=== PATIENT | female | born 1970 | race Caucasian/White ===

== ENCOUNTER 2021-12-21 19:01 | Emergency (ER) | payer OTHER, SELFPAY ==
[2021-12-21 20:10] VITALS: BP 145/92; PULSE 81; RESP 19; TEMP 36.7; O2SAT 98; BMI 26.2
[2021-12-21 20:27] LABS: Adenovirus,PCR Not Detected (NotDetected); Bordetella Pertussis Not Detected (NotDetected); Chlamydophila Pneumoniae, PCR Not Detected (NotDetected); Coronavirus 19, PCR Not Detected (NotDetected); Coronavirus 229E Not Detected (NotDetected); Coronavirus NL63 Not Detected (NotDetected); Coronavirus OC43 Not Detected (NotDetected); Coronovirus HKU1,PCR Not Detected (NotDetected); Human Metapneumovirus Not Detected (NotDetected); Influenza A, PCR Not Detected (NotDetected); Influenza AH1, 2009 Not Detected (NotDetected); Influenza AH1, PCR Not Detected (NotDetected); Influenza AH3,PCR Not Detected (NotDetected); Influenza B, PCR Not Detected (NotDetected); Mycoplasma Pneumoniae, PCR Not Detected (NotDetected); Parainfluenza 1, PCR Not Detected (NotDetected); Parainfluenza 2, PCR Not Detected (NotDetected); Parainfluenza 3, PCR Not Detected (NotDetected); Parainfluenza 4, PCR Not Detected (NotDetected); Respiratory Syncytial Virus Not Detected (NotDetected); Rhinovirus/Enterovirus Not Detected (NotDetected)
[2021-12-21 20:32] VITALS: BP 145/92; PULSE 81; RESP 19; TEMP 36.7; O2SAT 98
--- NOTE | 2021-12-21 20:32 | EXP.UTC ---
Discharge Plan Disposition Patient Disposition: Home, Self-Care Condition: Good Prescriptions Prescriptions: New azithromycin [Zithromax Z-Martinez] 250 mg tablet See Rx Instructions .ROUTE .COMPLEX Qty: 6 0RF Rx Instructions: For 250 mg dose pack: take 500 mg today (day 1), then 250 mg for 4 days (days 2-5) Referrals Follow up/Referrals: Beau Cormier MD [Primary Care Provider] - See instructions Activity Restrictions/Add. Instructions Additional Instructions/Restrictions: Make sure to notify whom ever monitors your blood work to let them know you on Azithromcyin your warfarin dose may need adjusted and watched if you take antibiotics Start antibiotic Be sure to complete entire prescription even if feeling better Monitor temp. Tylenol every 4 hours as needed and / or ibuprofen every 6 hours as needed ( As long as your primary care physician has told you that it ok to take both. For fever/aches/pains ER if no less than 101 despite Tylenol or Motrin Humidifier/vaporizer or hot steamy shower Inhaler every 4-6 hours as needed like we discussed. If unsure how to use it, ask pharmacist to demonstrate how. Should help open airways and improve cough, wheezing, and shortness of breath Over the counter Mucinex during the day for your cough during the day and cough suppressant only at night. Be sure to drink lots of water. *Tessalon Perles as prescribed for your cough, will not cause drowsiness but use at bedtime to help stop cough so that you may get some rest. Follow up IMMEDIATELY for new or worsening of symptoms OR no noticeable improvement over the next 48-72 hours. 911 immediately for any life threatening symptoms such as chest pain or difficulty breathing You were tested for today for COVID19 your test result should be back in the next 24-48 hours, you may may check your results on the [facility] My Health Portal Make sure to take your Vitamins Vit. C Vit D and Zinc if you can take them Clinical Impressions Clinical Impression: Sinusitis, Bronchitis Stand Alone Forms Stand Alone Forms: Work/School Release Discharge ED Provider: Aby Love [facility] [place] HPI General Stated complaint: cough, sore throat, congestion, covid test Mode of Arrival: Ambulatory Source of Information: Patient Limitations: No Limitations Time Seen by Provider: 12/21/21 20:32 Description of Symptoms (Recalled from Triage Doc. by RN): PATIENT C/O SOA, DIARRHEA, COUGH, AND SORE THROAT X 4 DAYS HEENT Symptoms (Recalled from RN notes): Yes Resp Symptoms (Recalled from RN notes): Yes Skin Symptoms (Recalled from RN notes): No MS Symptoms (Recalled from RN notes): No Functional Status (Recalled from RN notes): WNL History of Present Illness Provider Complaint: Patient state that she has been sick for about 4 days States that she has been having sinus congestion and pressure, cough, diarrhea and feeling little SOA at times after coughing episode states that she seen someone today and they give her a Rocephin shot and cough pills but this evening she was still feeling bad so she came in to get checked out Related Data Previous Rx's Medication Instructions Recorded azithromycin 250 mg tablet See Rx Instructions PO .COMPLEX #6 12/21/21 (Zithromax Z-Martinez) tabs Allergies Allergy/AdvReac Type Severity Reaction Status Date / Time acetaminophen Allergy Verified 12/21/21 20:24 [From Darvocet-N] propoxyphene Allergy Verified 12/21/21 20:24 [From Darvocet-N] Worker's Comp Is this a Worker's Comp case?: No PFSH PFSH Social History Smoking Status: Unknown if ever smoked alcohol intake: never current occupational status: other Travel in the last 8 weeks: None ROS Obtained: Yes All systems reviewed & no additional complaints except as documented and Yes Systems reviewed as appropriate & no additional complaints except as documented Constitutional Constitutional: Reports system
[2021-12-21 20:40] LABS: UTC Strep Screen (Rapid) Negative (Negative)
== END 2021-12-21 21:13 | disposition home or self-care (01) ==
PROVIDERS: Emergency Provider Nurse Practitioner; PCP Family Medicine
DX: J01.90 Acute sinusitis, unspecified (principal); J20.9 Acute bronchitis, unspecified; Z20.822 Contact with and (suspected) exposure to COVID-19
CPT/HCPCS: 87581; 87632; 87798; 87880; 96372; 99212; C9803; G0463; U0003; U0005

== ENCOUNTER 2024-02-12 11:13 | Emergency (ER) | payer OTHER, SELFPAY ==
[2024-02-12] VITALS (11 sets, daily range): BP systolic 123–164; BP diastolic 77–96; PULSE 84–105; RESP 16; TEMP 36.4–36.7; O2SAT 94–98; BMI 34.4
--- NOTE | 2024-02-12 11:39 | HMH.EDGENADL ---
Discharge Plan Disposition Patient Disposition: Home, Self-Care Prescriptions Prescriptions: New ondansetron 4 mg tablet,disintegrating 4 mg PO Q6H PRN (Reason: nausea and vomiting) 5 Days Qty: 20 0RF No Action azithromycin [Zithromax Z-Martinez] 250 mg tablet See Rx Instructions .ROUTE .COMPLEX Qty: 6 0RF Rx Instructions: For 250 mg dose pack: take 500 mg today (day 1), then 250 mg for 4 days (days 2-5) Referrals Follow up/Referrals: Kimo Gonzalez II, MD [Staff Physician] - See instructions Beau Cormier MD [Primary Care Provider] - See instructions Activity Restrictions/Add. Instructions Additional Instructions/Restrictions: The bulge that you are feeling on your midline of your abdomen is consistent with diastases recti which is as discussed an abnormal distance between the muscular bodies of your abdominal wall but not a true hernia. I would recommend that you lose weight and discuss this further with your general surgeon if you continue to have symptoms. Your abdominal pain is most likely secondary to the inflammatory changes we see on your colon consistent with colitis which may be infectious versus inflammatory. Please follow-up with her commercial lending vice president for further evaluation and management of this. Additionally your INR was subtherapeutic and continue to take your prescribed medications and follow-up primary care doctor regarding that Clinical Impressions Clinical Impression: Abdominal pain, Subtherapeutic international normalized ratio (INR), Colitis, Diastasis recti Instructions Patient Instructions: DI for Acute Abdominal Pain Print Language Print Language: Cuban Discharge ED Provider: Leonard Duran General Adult HPI General Chief complaint: Abdominal Pain Stated complaint: adominal pain Time Seen by Provider: 02/12/24 11:32 Mode of Arrival: Ambulatory Source of Information: Patient Limitations: No Limitations Description of Symptoms (Recalled from ER Triage Doc. by RN): Patient reports umbilical pain that started yesterday. Also states she has N/V/D and took Tylenol prior to leaving the house to come here. States she has gained weight and feels like there is a knot right above her belly button. History of Present Illness HPI narrative: Patient is a 54-year-old female presenting today with midline abdominal discomfort. She states that she has a protrusion/bulge that is coming on the anterior abdomen particular when she sits up. She has 5 children that she had herself in the past. No known diagnosis of a hernia. She has had some nausea vomiting diarrhea. No fevers chills etc. Related Data Previous Rx's ?Medication ?Instructions ?Recorded azithromycin 250 mg tablet See Rx Instructions PO .COMPLEX #6 12/21/21 (Zithromax Z-Martinez) tabs ondansetron 4 mg disintegrating 4 mg PO Q6H PRN nausea and 02/12/24 tablet vomiting 5 days #20 tabs Allergies Allergy/AdvReac Type Severity Reaction Status Date / Time acetaminophen Allergy Vomiting Verified 02/12/24 11:28 [From Darvocet-N] oxycodone [From Percocet] Allergy Vomiting Verified 02/12/24 11:28 propoxyphene Allergy Vomiting Verified 02/12/24 11:28 [From Darvocet-N] [facility] Disclaimer: The information contained in this section may have been updated after the patient was seen, as this information can be updated by other users. Social History Smoking Status: Current every day smoker alcohol intake: never current occupational status: other Travel in the last 8 weeks: None ROS Obtained: Yes All systems reviewed & no additional complaints except as documented Physical Exam General General appearance: alert and in no apparent distress Respiratory Respiratory exam: Present normal lung sounds bilaterally; Absent respiratory distress Cardiovascular Cardiovascular exam: Present regular rate; Absent normal rhythm Abdominal Exam Abdominal exam: Present soft and tenderness (There is a midline bulge that occurs with any type of Valsalva maneuver in the midline without any significant tenderness redness or irreducible hernia) Neurological Exam Neurological exam: Present alert and oriented X3 Medical Decision Making Medical Records Screening: Per USPSTF and CDC recommendations, given the prevalence of disease in our region, it is our hospital?s policy to screen for HIV and viral Hepatitis for all patients aged 18 and over and those with ongoing risk factors. Sanchez Inquiry Pt receiving controlled substance: No Vital Signs: 02/12/24 11:14 02/12/24 12:39 02/12/24 12:46 Temperature 97.6 F Temperature Source Oral Pulse Rate 92 H 87 Pulse Rate [Radial] 105 H Respiratory Rate 16 Blood Pressure 155/91 H 123/82 Blood Pressure [Right Arm] 149/95 H Blood Pressure Mean 119 95 Blood Pressure Mean [Right Arm] 113 Blood Pressure Source [Right Arm] Automatic Cuff Blood Pressure Position [Right Arm] Sitting 02 Sat by Pulse Oximetry 97 95 95 Oxygen Delivery Method Room Air Room Air Room Air 02/12/24 13:00 Temperature Temperature Source Pulse Rate 85 Pulse Rate [Radial] Respiratory Rate Blood Pressure 126/81 Blood Pressure [Right Arm] Blood Pressure Mean 93 Blood Pressure Mean [Right Arm] Blood Pressure Source [Right Arm] Blood Pressure Position [Right Arm] 02 Sat by Pulse Oximetry 96 Oxygen Delivery Method Room Air Lab Data Lab Results 02/12/24 11:30: WBC 9.4, RBC 5.10, Hgb 15.2, Hct 45.5, MCV 89.2, MCH 29.9, MCHC 33.5, RDW 15.2, Plt Count 257, MPV 8.8, Neut % (Auto) 66.2, Lymph % (Auto) 26.1, Bradford % (Auto) 5.2, Eos % (Auto) 1.8, Baso % (Auto) 0.8, Neut # (Auto) 6.2, Lymph # (Auto) 2.5, Bradford # (Auto) 0.5, Eos # (Auto) 0.2, Baso # (Auto) 0.1, Sodium 142, Potassium 3.4 L, Chloride 105, Carbon Dioxide 31 H, Anion Gap 9.4, BUN 7, Creatinine 0.70, Estimated Creat Clear 135, Estimated GFR 88, Est GFR ( Amer) 106, Glucose 114 H, Lactate 2.4 H, Calcium 10.0, Total Bilirubin 0.7, AST 71 H, ALT 36, Alkaline Phosphatase 128 H, Total Protein 8.0, Albumin 4.3, Globulin 3.7 H, Albumin/Globulin Ratio 1.2, Lipase 129 02/12/24 12:16: PT 12.4, INR 1.12 H 02/12/24 11:30 02/12/24 11:30 Orders (Tests/Meds): ED MEDICATIONS Generic Name Dose Route Start Last Admin Trade Name Freq PRN Reason Stop Dose Admin Sodium Chloride 10 ml 02/12/24 12:31 02/12/24 12:32 Sodium Chloride 0.9% 10ml Syr (Rad Only) IV 03/13/24 12:30 10 ml NEEDED PRN Administration Maintain IV Site Discontinued Medications Generic Name Dose Route Start Last Admin Trade Name Freq PRN Reason Stop Dose Admin Lactated Ringer's 1,000 mls @ 999 mls/hr 02/12/24 11:45 02/12/24 12:23 Lactated Ringer's 1000 Ml Bag IV 02/12/24 12:45 999 mls/hr .Q1H1M DORA Administration Iopamidol 75 ml 02/12/24 12:31 02/12/24 12:32 Iopamidol-370 (76%);100ml Bottle IV 02/12/24 12:32 75 ml ONCE ONE Administration Morphine Sulfate 4 mg 02/12/24 11:40 02/12/24 12:23 Morphine 4mg/Ml Syringe IV 02/12/24 11:41 4 mg ONCE ONE Administration Ondansetron HCl 4 mg 02/12/24 11:40 02/12/24 12:23 Ondansetron 4mg/2ml Vial IV 02/12/24 11:41 4 mg ONCE ONE Administration ORDERS Category Date Time Status CT abdomen pelvis w con Stat Cat Scan 02/12/24 11:40 Completed CBC w/Auto Diff [Complete Blood Count Auto Diff] Stat Lab 02/12/24 11:30 Completed CMP [Comprehensive Metabolic Panel] Stat Lab 02/12/24 11:30 Completed Diarrhea 23 Panel, PCR Stat Lab 02/12/24 14:32 Ordered HIV (1&2) Antibody Rapid Stat Lab 02/12/24 11:30 Received Hep C Ab with Reflex to RNA Stat Lab 02/12/24 11:30 Received Lactic Acid Stat Lab 02/12/24 11:30 Completed Lipase Stat Lab 02/12/24 11:30 Completed PT/INR [Prothrombin Time INR] Stat Lab 02/12/24 12:16 Completed Medical Decision Narrative: 54-year-old above history and physical. She has some abdominal discomfort and what appears to be a diastases recti abnormality in the midline of her abdominal wall musculature. I do not appreciate a hernia that is irreducible. Given amount of tenderness we will get a CT scan to evaluate for further pathology which would include colitis bowel obstruction incarcerated or strangulated hernia etc. IV fluids pain medicine have been administered will reassess. 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 Reassessment CT scan performed which I personally interpreted which shows an abnormal distance between her abdominal musculature consistent with diastases recti I discussed with her conservative management weight loss etc. This is not the cause of her symptoms but is the cause of her bulge that she is feeling. She did have evidence of nonspecific bowel inflammation on the ascending colon consistent with colitis inflammatory versus infectious. Have attempted to get a diarrhea panel in the emergency department and will not start empiric antibiotics. She has been worked up in the past for possible inflammatory bowel disease and have advised that she follow back up with our commercial lending vice president Dr. Gonzalez for further evaluation and management of this. Nausea medicine has been prescribed she is tolerating p.o. she was discharged in stable condition. Critical Care Critical Care Time Critical Care Time: No
--- NOTE | 2024-02-12 11:40 | CT_ITS ---
PROCEDURE INFORMATION: Exam: CT Abdomen And Pelvis With Contrast Exam date and time: 02/12/2024 12:33 PM Age: 54 years old Clinical indication: Abdominal pain; Generalized; Additional info: Midline abd pain and ttp, concern for hernia TECHNIQUE: Imaging protocol: Computed tomography of the abdomen and pelvis with contrast. Radiation optimization: All CT scans at this facility use at least one of these dose optimization techniques: automated exposure control; mA and/or kV adjustment per patient size (includes targeted exams where dose is matched to clinical indication); or iterative reconstruction. Contrast material: ISOVUE; Contrast volume: 75 ml; Contrast route: IV; COMPARISON: No relevant prior studies available. FINDINGS: Liver: Normal. No mass. Gallbladder and biliary ducts: Post cholecystectomy. No line common bile duct is prominent at 10 mm, favored to be due to post cholecystectomy changes. Pancreas: Normal. No ductal dilation. Spleen: Normal. No splenomegaly. Adrenal glands: Normal. No mass. Kidneys and ureters: Normal. No hydronephrosis. Stomach and bowel: No bowel obstruction. There is hyperenhancement of the ascending colon, the descending colon, and rectosigmoid colon, with mild bowel wall thickening, suspicious for a infectious/inflammatory colitis. Appendix: No evidence of appendicitis. Intraperitoneal space: Unremarkable. No free air. No significant fluid collection. Vasculature: Mild aortoiliac atherosclerosis. No aneurysm. Lymph nodes: Unremarkable. No enlarged lymph nodes. Urinary bladder: Unremarkable as visualized. Reproductive: Post hysterectomy. Bones/joints: Unremarkable. No acute fracture. Soft tissues: Small fat containing left inguinal hernia. IMPRESSION: 1. There is hyperenhancement of the ascending colon, the descending colon, and rectosigmoid colon, with mild bowel wall thickening, suspicious for a infectious/inflammatory colitis. No bowel obstruction. 2. Post cholecystectomy. No line common bile duct is prominent at 10 mm, favored to be due to post cholecystectomy changes. 3. Small fat containing left inguinal hernia.
[2024-02-12 11:50] LABS: Albumin Level 4.3 g/dl (3.5-5.0); Basophils # 0.1 K/mm3 (0-0.2); Basophils % 0.8 % (0.1-2.0); Chloride 105 mmol/L (98-107); Eosinophils # 0.2 K/mm3 (0.0-0.4); Eosinophils % 1.8 % (0.1-12.0); Hematocrit 45.5 % (37.0-47.0); Hemoglobin 15.2 g/dL (12.2-16.2); Lymphocytes # 2.5 K/mm3 (0.7-4.5); Lymphocytes % 26.1 % (10-50); Mean Corpuscular HGB Conc 33.5 g/dL (31.8-35.4); Mean Corpuscular Hemoglobin 29.9 pg (27.0-31.2); Mean Corpuscular Volume 89.2 fl (81-99); Mean Platelet Volume 8.8 fl (7.4-10.4); Monocytes # 0.5 K/mm3 (0.1-1.0); Monocytes % 5.2 % (1.7-9.3); Neutrophils # 6.2 K/mm3 (1.8-7.8); Neutrophils % 66.2 % (37.0-80.0); Platelet Count 257 K/mm3 (142-424); Potassium 3.4 mmoL/L (3.5-5.1); Red Cell Distribution Width 15.2 % (11.5-17.5); Sodium 142 mmol/L (136-145); White Blood Count 9.4 K/mm3 (4.8-10.8)
[2024-02-12 11:53] LABS: Alanine Aminotransferase 36 U/L (12-78); Albumin/Globulin Ratio 1.2 (1.1-1.8); Alkaline Phosphatase 128 U/L (38-126); Anion Gap 9.4 mEq/L (5-15); Aspartate Amino Transferase 71 U/L (14-36); Bilirubin,Total 0.7 mg/dl (0.2-1.3); Blood Urea Nitrogen 7 mg/dl (7-17); Carbon Dioxide 31 mmol/L (22.0-30.0); Creatinine Clearance Estimated 135 mL/min (50-200); Estimated Glomerular Filt Rate 88 ml/min (>60); GFR (African American) 106 ML/MIN (>60); Globulin 3.7 g/dL (1.3-3.2); Lipase 129 U/L (23-300)
[2024-02-12 11:54] LABS: Glucose 114 mg/dl (74-100)
[2024-02-12 11:59] LABS: Lactic Acid 2.4 mmol/L (0.7-2.1)
--- NOTE | 2024-02-12 12:17 | PC.NURSE ---
LAB NOTIFIED OF ADDITIONAL LABS ORDERED
[2024-02-12] MEDS: MORPHINE 4MG/ML SYRINGE 4 MG IV (12:23)
[2024-02-12] MEDS: LACTATED RINGERS 1000ML 1,000 ML 999 ML IV (12:23)
[2024-02-12] MEDS: ONDANSETRON 4MG/2ML VIAL 4 MG IV (12:23)
--- NOTE | 2024-02-12 12:24 | PC.NURSE ---
PT TO CT
[2024-02-12 12:27] LABS: INR 1.12 (0.9-1.1); Prothrombin Time 12.4 seconds (10.1-12.5)
[2024-02-12] MEDS: SODIUM CHLORIDE 0.9% 10ML SYR (RAD ONLY) 10 ML IV (12:32)
[2024-02-12] MEDS: IOPAMIDOL-370 (76%);100ML BOTTLE 75 ML IV (12:32)
[2024-02-12 15:07] LABS: HIV (1&2) Antibody Rapid NONREACTIVE (NONREACTIVE)
[2024-02-12] MEDS: KETOROLAC 30MG/ML VIAL 15 MG IV (15:23)
[2024-02-12 15:48] LABS: Reflex Lactic Add Lactic Reflex
[2024-02-14 05:16] LABS: HCV Ab Non Reactive (Non Reactive)
== END 2024-02-12 15:26 | disposition home or self-care (01) ==
PROVIDERS: Emergency Provider Student in an Organized Health Care Education/Training Program; PCP Family Medicine
DX: K52.9 Noninfective gastroenteritis and colitis, unspecified (principal); R79.1 Abnormal coagulation profile; M62.08 Separation of muscle (nontraumatic), other site; R10.9 Unspecified abdominal pain; R11.2 Nausea with vomiting, unspecified; R63.5 Abnormal weight gain
CPT/HCPCS: 74177; 80053; 83605; 83690; 85025; 85610; 86803; 87389; 96361; 96374; 96375; 99285; J1885; J2270; J2405; J7120; Q9967